=== PATIENT | female | born 1980 | race Caucasian/White ===

== ENCOUNTER 2017-07-11 13:27 | Emergency (ER) | payer SELFPAY ==
[~2017-07-11] VITALS: Ht 157.5 cm; Wt 72.6 kg
[2017-07-11 14:03] VITALS: BP 105/63
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
[2017-07-11 14:47] LABS: BILIRUBIN,URINE NEGATIVE (NEG); GLUCOSE,URINE NEGATIVE (NEG); NITRITE,URINE NEGATIVE (NEG); PH,URINE 5.5; PROTEIN,URINE NEGATIVE (NEG-TRACE); UROBILINOGEN,URINE 0.2 mg/dL (0.2 mg/dL)
--- NOTE | 2017-07-11 14:58 | RAD ---
CT head Indication: Headache for one week Technique: CT head without IV contrast. Comparison: None Findings: No pathologic extra-axial or intra-axial fluid collection. No acute intracranial bleed. The ventricles and basilar cisterns are within normal limits. The carrasco-white differentiation is preserved. Orbits within normal limits. Oval-shaped low attenuating focus seen within anterior right frontal lobe most likely prominent sulcus. No calvarial lesions. The paranasal sinuses and mastoid air cells are clear. Impression: No acute intracranial process on this noncontrast study. PQRS Compliance Statement: One or more of the following individualized dose reduction techniques were utilized for this examination: 1. Automated exposure control 2. Adjustment of the mA and/or kV according to patient size 3. Use of iterative reconstruction technique
[2017-07-11 14:59] LABS: BACTERIA,URINE MANY /HPF (0-FEW); RBC,URINE 0 /HPF (0-2); SQUAMOUS EPITHELIAL CELL,UR MANY /LPF
[2017-07-11] MEDS ORDERED: METOCLOPRAMIDE 10 MG TABLET. PO ONE (15:15)
[2017-07-11] MEDS ORDERED: diphenhydrAMINE HCL 25 MG CAPSULE PO ONE (15:15)
[2017-07-11] MEDS ORDERED: IBUPROFEN 800 MG TABLET. PO ONE (15:15)
[2017-07-11] MEDS ORDERED: NITR100C62 PO (15:17)
[2017-07-11 15:48] LABS: BARBITURATES NEG (NEG); BENZODIAZEPINES NEG (NEG); CANNABINOIDS POS (NEG); COCAINE NEG (NEG); METHADONE NEG (NEG); OPIATES NEG (NEG); PHENCYCLIDINE NEG (NEG)
== END 2017-07-11 15:30 | disposition home or self-care (01) ==
LOC: ER 13:27
DX: N39.0 Urinary tract infection, site not specified (principal); R51 Headache; F12.10 Cannabis abuse, uncomplicated; F15.10 Other stimulant abuse, uncomplicated; E03.9 Hypothyroidism, unspecified; F10.10 Alcohol abuse, uncomplicated
CPT/HCPCS: 70450; 80307; 81001; 81025; 87086; 99285; J8597; Q0163; G0479

== ENCOUNTER 2017-08-05 02:56 | Emergency (ER) | payer SELFPAY ==
[~2017-08-05] VITALS: Ht 154.9 cm; Wt 61.2 kg
[~2017-08-05 02:56] MED LIST: NITR100C62 PO
[2017-08-05 03:05] VITALS: BP 97/61
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
[2017-08-05 03:36] LABS: BACTERIA,URINE MODERATE /HPF (0-FEW); BILIRUBIN,URINE NEGATIVE (NEG); GLUCOSE,URINE NEGATIVE (NEG); NITRITE,URINE NEGATIVE (NEG); PH,URINE 5.5; PROTEIN,URINE NEGATIVE (NEG-TRACE); RBC,URINE OCC /HPF (0-2); SQUAMOUS EPITHELIAL CELL,UR MANY /LPF; UROBILINOGEN,URINE 0.2 mg/dL (0.2 mg/dL)
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
[2017-08-05] MEDS ORDERED: DIPHTH,PERTUSS(ACELL),TET TOX 0.5 ML DISP.SYRIN. VAX IM ONE ×2 (04:49→09:00)
[2017-08-05] MEDS ORDERED: LIDOCAINE 1% / SOD BICARB 8.4% 20 ML VIAL. IJ ONE (05:00)
[2017-08-05] MEDS ORDERED: NAPR500T PO (05:05)
[2017-08-05] MEDS ORDERED: KETOROLAC 60 MG/2 ML INJ. IM ONE (05:30)
[2017-08-05] MEDS ORDERED: IBUP-1060 PO (13:09)
== END 2017-08-05 05:14 | disposition home or self-care (01) ==
LOC: EEVIPCON 02:56 → ER 02:56
DX: S01.01XA Laceration without foreign body of scalp, initial encounter (principal); F41.9 Anxiety disorder, unspecified; F32.9 Major depressive disorder, single episode, unspecified; M79.7 Fibromyalgia; E03.9 Hypothyroidism, unspecified; G89.29 Other chronic pain; G47.00 Insomnia, unspecified; Q79.6 Ehlers-Danlos syndromes; F10.10 Alcohol abuse, uncomplicated; Z88.8 Allergy status to other drugs, medicaments and biological substances; X99.8XXA Assault by other sharp object, initial encounter; Y93.89 Activity, other specified; Y92.89 Other specified places as the place of occurrence of the external cause; Y99.8 Other external cause status
CPT/HCPCS: 12001; 70450; 72125; 81001; 81025; 87086; 90471; 90715; 96372; 99285; J1885

== ENCOUNTER 2017-08-05 11:38 | Emergency (ER) | payer MEDICARE ==
[~2017-08-05] VITALS: Ht 154.9 cm; Wt 61.2 kg
[~2017-08-05 11:38] MED LIST changes: +NAPR500T PO
[2017-08-05 11:45] VITALS: BP 129/76
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
[2017-08-05] MEDS ORDERED: HYDROcodone/APAP 5/325MG 1 TAB TABLET PO ONE (12:30)
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
[2017-08-05] MEDS ORDERED: IBUP-1060 PO (13:09)
== END 2017-08-05 13:44 | disposition home or self-care (01) ==
LOC: ER 11:38
DX: M54.5 Low back pain (principal); E03.9 Hypothyroidism, unspecified; Q79.6 Ehlers-Danlos syndromes; M79.7 Fibromyalgia; G89.29 Other chronic pain; F41.9 Anxiety disorder, unspecified; F32.9 Major depressive disorder, single episode, unspecified; Z88.8 Allergy status to other drugs, medicaments and biological substances
CPT/HCPCS: 72100; 99284

== ENCOUNTER 2017-11-17 04:36 | Emergency (ER) | payer SELFPAY, MEDICARE ==
[2017-11-17 05:06] LABS: URINE HCG POC HCG POSITIVE (Negative)
[2017-11-17 05:09] LABS: BILIRUBIN,URINE NEGATIVE (NEG); CLARITY,URINE CLEAR; COLOR,URINE YELLOW; GLUCOSE,URINE NEGATIVE (NEG); NITRITE,URINE POSITIVE (NEG); PH,URINE 6.5; PROTEIN,URINE NEGATIVE (NEG-TRACE); UROBILINOGEN,URINE 0.2 mg/dL (0.2 mg/dL)
[2017-11-17] MEDS: ZIPRASIDONE IM 20 MG VIAL. IM (05:17)
[2017-11-17 05:22] LABS: AMORPHOUS SEDIMENT,UR PRESENT /HPF; BACTERIA,URINE MODERATE /HPF (0-FEW); RBC,URINE OCC /HPF (0-2); SQUAMOUS EPITHELIAL CELL,UR FEW /LPF
[2017-11-17 05:23] LABS: BARBITURATES NEG (NEG); BENZODIAZEPINES NEG (NEG); CANNABINOIDS NEG (NEG); COCAINE NEG (NEG); METHADONE NEG (NEG); OPIATES NEG (NEG); PHENCYCLIDINE NEG (NEG)
[2017-11-17 05:25] LABS: AMPHETAMINE/METHAMPHETAMINE POS (NEG); ETHANOL, URINE POS (NEG)
[2017-11-17 05:53] LABS: ADD MAN DIFF? NO
[2017-11-17 05:56] LABS: BASO # 0.1 x10^3/uL (0.0-0.2); BASO % 1 % (0-3); EOS # 0.1 x10^3/uL (0.0-0.7); EOS % 1 % (0-3); HEMATOCRIT 46.2 % (36.0-47.0); HEMOGLOBIN 15.7 g/dL (12.0-15.5); LYMPH # 2.4 x10^3/uL (1.0-4.8); LYMPH % 28 % (24-48); MEAN CORPUSCULAR HEMOGLOBIN 32 pg (25-35); MEAN CORPUSCULAR HGB CONC 34 g/dL (31-37); MEAN CORPUSCULAR VOLUME 95 fL (79-100); MONO # 0.7 x10^3/uL (0.0-1.1); MONO % 8 % (0-9); NEUT # 5.5 x10^3uL (1.8-7.7); NEUT % 62 % (31-73); PLATELET COUNT 329 x10^3/uL (140-400); RED BLOOD COUNT 4.88 x10^6/uL (3.50-5.40); RED CELL DISTRIBUTION WIDTH 12.7 % (11.5-14.5); WHITE BLOOD COUNT 8.8 x10^3/uL (4.0-11.0)
[2017-11-17 06:08] LABS: ETHANOL 277 mg/dL (0-10)
[2017-11-17 06:24] LABS: ANION GAP 16 (6-14); BLOOD UREA NITROGEN 16 mg/dL (7-20); BUN/CREATININE RATIO 27 (6-20); CALCIUM 8.3 mg/dL (8.5-10.1); CARBON DIOXIDE 21 mmol/L (21-32); CHLORIDE 107 mmol/L (98-107); CREATININE 0.6 mg/dL (0.6-1.0); GFR 113.1; GLUCOSE 117 mg/dL (70-99); SODIUM 144 mmol/L (136-145)
[2017-11-17 06:30] LABS: ALBUMIN 3.7 g/dL (3.4-5.0); ALBUMIN/GLOBULIN RATIO 1.1 (1.0-1.7); ALK PHOS 50 U/L (46-116); ALT (SGPT) 14 U/L (14-59); AST (SGOT) 15 U/L (15-37); TOTAL BILIRUBIN 0.2 mg/dL (0.2-1.0)
[2017-11-17 06:39] LABS: POTASSIUM 3.5 mmol/L (3.5-5.1)
== END 2017-11-17 12:37 | disposition home or self-care (01) ==
LOC: ER 04:36
DX: F23 Brief psychotic disorder (principal); F10.10 Alcohol abuse, uncomplicated; F15.10 Other stimulant abuse, uncomplicated; F41.9 Anxiety disorder, unspecified; F32.9 Major depressive disorder, single episode, unspecified; M79.7 Fibromyalgia; E03.9 Hypothyroidism, unspecified; G89.29 Other chronic pain; G47.00 Insomnia, unspecified; Z88.8 Allergy status to other drugs, medicaments and biological substances; Z33.1 Pregnant state, incidental; Y90.8 Blood alcohol level of 240 mg/100 ml or more
CPT/HCPCS: 36415; 80053; 80307; 81001; 81025; 84702; 85025; 87086; 87186; 93005; 96365; 96372; 99285-25; G0480; J0690; J3486

== ENCOUNTER 2018-08-12 16:26 | Emergency (ER) | payer SELFPAY ==
[~2018-08-12] VITALS: Ht 162.6 cm; Wt 54.0 kg
[~2018-08-12 16:26] MED LIST changes: +IBUP-1060 PO; +NAPR-683 PO; -NAPR500T PO
[2018-08-12 16:35] VITALS: BP 94/57
[2018-08-12] MEDS: ONDANSETRON ODT 4 MG TAB.RAPDIS. PO ONE (17:09)
[2018-08-12] MEDS: IBUPROFEN 800 MG TABLET. PO ONE (17:09)
[2018-08-12] MEDS ORDERED: IBUP-1060 PO (17:27)
--- NOTE | 2018-08-12 17:27 | PHYS DOC ---
Past Medical History Past Medical History: Anxiety, Depression, Fibromyalgia, Hypothyroid, Other Additional Past Medical Histor: separation anxiety, joint disorder, insomnia, CHRONIC PAIN Past Surgical History: Other Additional Past Surgical Histo: wisdom teeth extracted Alcohol Use: Heavy Drug Use: Marijuana, Methamphetamine Adult General Chief Complaint Chief Complaint: BACK PAIN OR INJURY [facility] HPI Patient is a 38 year old female with a history of back pain presents to the ED complaining of lower back pain 2 days ago. Patient states that she was lifting a few objects and thinks she injured her left lower back. Describes the pain as sharp. Rates the pain as 7 out of 10. Patient able to ambulate without assistance. Denies fever, nausea/vomiting, abdominal pain, nausea/vomiting, chest pain, shortness of breath, or fever. Review of Systems Review of Systems Constitutional: Denies fever or chills [] Respiratory: Denies cough or shortness of breath [] Cardiovascular: No additional information not addressed in HPI [] GI: Denies abdominal pain, nausea, vomiting, bloody stools or diarrhea [] : Denies dysuria or hematuria [] Musculoskeletal: Complains of back pain. Denies joint pain [] Integument: Denies rash or skin lesions [] Neurologic: Denies headache, focal weakness or sensory changes [] All other systems were reviewed and found to be within normal limits, except as documented in this note. Current Medications Current Medications Current Medications Medications (Trade) Dose Ordered Sig/[facility] Start Time Stop Time Status Last Admin Dose Admin Ibuprofen (Motrin) 800 mg 1X ONCE 08/12/18 17:00 08/12/18 17:01 DC 08/12/18 17:09 800 MG Ondansetron HCl (Zofran Odt) 4 mg 1X ONCE 08/12/18 17:00 08/12/18 17:01 DC 08/12/18 17:09 4 MG Allergies Allergies Allergies Coded Allergies Type Severity Reaction Last Updated Verified pregabalin Allergy Intermediate 11/11/16 Yes Physical Exam Physical Exam Constitutional: Well developed, well nourished, no acute distress, non-toxic appearance. [] Cardiovascular:Heart rate regular rhythm, no murmur [] Lungs & Thorax: Bilateral breath sounds clear to auscultation [] Abdomen: Bowel sounds normal, soft, no tenderness, no masses, no pulsatile masses. [] Skin: Warm, dry, no erythema, no rash. [] Back: No tenderness, no CVA tenderness. [] Extremities: No bony tenderness, no cyanosis, no clubbing, ROM intact, no edema. [] Neurologic: Alert and oriented X 3, normal motor function, normal sensory function, no focal deficits noted. [] Psychologic: Affect normal, judgement normal, mood normal. [] Current Patient Data Vital Signs Vital Signs Date Time Temp Pulse Resp B/P (MAP) Pulse Ox O2 Delivery O2 Flow Rate FiO2 08/12/18 16:35 98.3 68 12 94/57 (69) 99 Room Air 98.3 EKG EKG [] Radiology/Procedures Radiology/Procedures [] Course & Med Decision Making Course & Med Decision Making Pertinent Labs and Imaging studies reviewed. (See chart for details) []No bony tenderness. No x-ray warranted. Patient's pain improved in the ED. States she is feeling much better. Patient able to ambulate without assistance. No focal neural deficits. Discussed follow-up with PCP outpatient this week. Provided contact information/education. Discussed reasons to return to the ED. Patient understands and agrees with plan. Community resource list provided. Dragon Disclaimer Dragon Disclaimer This electronic medical record was generated, in whole or in part, using a voice recognition dictation system. Departure Departure Impression: Primary Impression: Back pain Disposition: 01 HOME, SELF-CARE Condition: IMPROVED Referrals: NO PCP (PCP) HERSON RADER MD Patient Instructions: Back Pain, Adult Scripts Ibuprofen (IBUPROFEN) 800 Mg Tablet 800 MG PO PRN Q6HRS PRN for INFLAMMATION, #10 TAB Prov: ORTEGA MENDOZA 08/12/18 ORTEGA MENDOZA Aug 12, 2018 17:27
== END 2018-08-12 17:45 | disposition home or self-care (01) ==
LOC: ER 16:26
DX: M54.5 Low back pain (principal); F41.9 Anxiety disorder, unspecified; F32.9 Major depressive disorder, single episode, unspecified; M79.7 Fibromyalgia; E03.9 Hypothyroidism, unspecified; G89.29 Other chronic pain; F10.20 Alcohol dependence, uncomplicated; Z88.8 Allergy status to other drugs, medicaments and biological substances; Y90.9 Presence of alcohol in blood, level not specified
CPT/HCPCS: 99283; Q0162

== ENCOUNTER 2018-08-12 19:04 | Emergency (ER) | payer SELFPAY ==
[~2018-08-12] VITALS: Ht 152.4 cm; Wt 45.4 kg
--- NOTE | 2018-08-12 19:41 | PHYS DOC ---
Past Medical History Past Medical History: Anxiety, Depression, Fibromyalgia, Hypothyroid, Other Additional Past Medical Histor: separation anxiety, joint disorder, insomnia, CHRONIC PAIN Past Surgical History: Other Additional Past Surgical Histo: wisdom teeth extracted Alcohol Use: Heavy Drug Use: Marijuana, Methamphetamine Adult General Chief Complaint Chief Complaint: SUICDAL IDEATION [facility] HPI Patient is a 38 year old female with a history of depression who was seen previously today for back pain in the ED presents complaining of suicidal ideation 3 hours. Patient states that she is going through a divorce and might be losing her kid. Patient is uncooperative in the exam room. Having to redirect her multiple times as she talks about her other ailments including back pain and insect bites. Patient admits to having stayed in previous institutions for psych evaluations. States she has not been taking her medications; only one she remembers the name of is Seroqueeagle. Denies homicidal ideation, hallucinations, headache, vision changes, fever, dizziness, weakness, chest pain, abdominal pain, n/v, or injury. Patient is a poor historian and uncooperative. Review of Systems Review of Systems Constitutional: Denies fever or chills [] Eyes: Denies change in visual acuity, redness, or eye pain [] HENT: Denies nasal congestion or sore throat [] Respiratory: Denies cough or shortness of breath [] Cardiovascular: No additional information not addressed in HPI [] GI: Denies abdominal pain, nausea, vomiting, bloody stools or diarrhea [] : Denies dysuria or hematuria [] Musculoskeletal: Denies back pain or joint pain [] Integument: Denies rash or skin lesions [] Neurologic: Denies headache, focal weakness or sensory changes [] All other systems were reviewed and found to be within normal limits, except as documented in this note. Current Medications Current Medications Current Medications Medications (Trade) Dose Ordered Sig/[facility] Start Time Stop Time Status Last Admin Dose Admin Azithromycin (Zithromax) 1,000 mg 1X ONCE 08/12/18 20:30 08/12/18 20:31 DC 08/12/18 20:30 1,000 MG Ceftriaxone Sodium (Rocephin Im) 250 mg 1X ONCE 08/12/18 20:30 08/12/18 20:31 DC 08/12/18 20:30 250 MG Metronidazole (Flagyl) 2,000 mg 1X ONCE 08/12/18 21:15 08/12/18 21:16 DC 08/12/18 21:15 2,000 MG Sodium Chloride 1,000 ml @ 1,000 mls/hr 1X ONCE 08/12/18 20:30 08/12/18 21:29 DC Allergies Allergies Allergies Coded Allergies Type Severity Reaction Last Updated Verified pregabalin Allergy Intermediate 11/11/16 Yes Physical Exam Physical Exam Constitutional: no acute distress, non-toxic appearance. [] HENT: Normocephalic, atraumatic Eyes: PERRLA, EOMI, conjunctiva normal, no discharge. [] Neck: Normal range of motion, no tenderness, supple, no stridor. [] Cardiovascular:Heart rate regular rhythm, no murmur [] Lungs & Thorax: Bilateral breath sounds clear to auscultation [] Abdomen: Bowel sounds normal, soft, no tenderness, no masses, no pulsatile masses. [] Skin: Warm, dry, no erythema, no rash. [] Back: No tenderness, no CVA tenderness. [] Extremities: No tenderness, no cyanosis, no clubbing, ROM intact, no edema. [] Neurologic: Alert and oriented X 3, normal motor function, normal sensory function, no focal deficits noted. [] Psychologic: Complains of suicidal ideation without plan. Uncooperative. Current Patient Data Vital Signs Vital Signs Date Time Temp Pulse Resp B/P (MAP) Pulse Ox O2 Delivery O2 Flow Rate FiO2 08/12/18 22:54 65 18 77/53 (61) 99 Room Air 08/12/18 19:16 97.7 97.7 Lab Values Laboratory Tests Test 08/12/18 19:15 08/12/18 19:33 08/12/18 19:40 Urine Collection Type Unknown Urine Color [place] Urine Clarity Cloudy Urine pH 5.5 Urine Specific [place] >=1.030 Urine Protein Negative mg/dL (NEG-TRACE) Urine Glucose (UA) Negative mg/dL (NEG) Urine Ketones (Stick) 15 mg/dL (NEG) Urine Blood Negative (NEG) Urine Nitrite Negative (NEG) Urine Bilirubin Moderate (NEG) Urine Urobilinogen Dipstick 1.0 mg/dL (0.2 mg/dL) Urine Leukocyte Esterase Small (NEG) Urine RBC 0 /HPF (0-2) Urine WBC 11-20 /HPF (0-4) Urine Squamous Epithelial Cells Mod /LPF Urine Bacteria Mod /HPF (0-FEW) Urine Mucus Marked /LPF Urine Trichomonas Present Urine Opiates Screen Neg (NEG) Urine Methadone Screen Neg (NEG) Urine Barbiturates Neg (NEG) Urine Phencyclidine Screen Neg (NEG) Urine Amphetamine/Methamphetamine Pos (NEG) Urine Benzodiazepines Screen Neg (NEG) Urine Cocaine Screen Neg (NEG) Urine Cannabinoids Screen Neg (NEG) Urine Ethyl Alcohol Neg (NEG) POC Urine HCG, Qualitative Hcg positive (Negative) White Blood Count 8.5 x10^3/uL (4.0-11.0) Red Blood Count 4.16 x10^6/uL (3.50-5.40) Hemoglobin 13.6 g/dL (12.0-15.5) Hematocrit 38.6 % (36.0-47.0) Mean Corpuscular Volume 93 fL (79-100) Mean Corpuscular Hemoglobin 33 pg (25-35) Mean Corpuscular Hemoglobin Concent 35 g/dL (31-37) Red Cell Distribution Width 12.2 % (11.5-14.5) Platelet Count 331 x10^3/uL (140-400) Neutrophils (%) (Auto) 60 % (31-73) Lymphocytes (%) (Auto) 31 % (24-48) Monocytes (%) (Auto) 8 % (0-9) Eosinophils (%) (Auto) 1 % (0-3) Basophils (%) (Auto) 1 % (0-3) Neutrophils # (Auto) 5.1 x10^3uL (1.8-7.7) Lymphocytes # (Auto) 2.6 x10^3/uL (1.0-4.8) Monocytes # (Auto) 0.7 x10^3/uL (0.0-1.1) Eosinophils # (Auto) 0.1 x10^3/uL (0.0-0.7) Basophils # (Auto) 0.1 x10^3/uL (0.0-0.2) Maternal Serum HCG Beta Subunit 43 mIU/mL (0-5) H Sodium Level 135 mmol/L (136-145) L Potassium Level 3.3 mmol/L (3.5-5.1) L Chloride Level 99 mmol/L (98-107) Carbon Dioxide Level 29 mmol/L (21-32) Anion Gap 7 (6-14) Blood Urea Nitrogen 16 mg/dL (7-20) Creatinine 1.2 mg/dL (0.6-1.0) H Estimated GFR (Cockcroft-Gault) 50.6 BUN/Creatinine Ratio 13 (6-20) Glucose Level 103 mg/dL (70-99) H Calcium Level 9.2 mg/dL (8.5-10.1) Total Bilirubin 0.5 mg/dL (0.2-1.0) Aspartate Amino Transferase (AST) 13 U/L (15-37) L Alanine Aminotransferase (ALT) 12 U/L (14-59) L Alkaline Phosphatase 44 U/L (46-116) L Creatine Kinase 42 U/L (26-192) Total Protein 7.4 g/dL (6.4-8.2) Albumin 3.9 g/dL (3.4-5.0) Albumin/Globulin Ratio 1.1 (1.0-1.7) Salicylates Level 2.8 mg/dL (2.8-20.0) Salicylate Last Dose Date Unk Salicylate Last Dose Time Unk Acetaminophen Level < 2 mcg/ml (10-30) L Acetaminophen Last Dose Date Unk Acetaminophen Last Dose Time Unk Ethyl Alcohol Level < 10 mg/dL (0-10) Laboratory Tests 08/12/18 19:40 Laboratory Tests 08/12/18 19:40 EKG EKG [] Radiology/Procedures Radiology/Procedures PROCEDURE: PREG 1ST TRIMESTER Exam performed: Pelvic ultrasound. Indication: Positive test, spotting Date of Service: 08/12/2018. Comparison: None available Technique: Transabdominal, patient refused transvaginal scanning Findings: The uterus measures 7.0 x 4.9 x 4.0 cm. The endometrial stripe measures 11.1 mm. There is no intrauterine gestational sac. Bilateral ovaries are normal. The right ovary measures 2.4 x 1.5 x 1.4 cm.The left ovary measures 2.1 x 1.2 x 1.2 cm . Symmetric vascularity to both ovaries. There is no free fluid in the posterior cul-de-sac. Impression: 1. Essentially unremarkable pelvic sonogram. No evidence of intra or extra uterine seen. Findings may be related to very early intrauterine . Correlate with quantitative serial beta-hCG level and short-term interval follow-up OB ultrasound in approximately 2 weeks may be obtained.[] Course & Med Decision Making Course & Med Decision Making Pertinent Labs and Imaging studies reviewed. (See chart for details) []Patient found to be on workup. Will evaluate with US and HCG serum. Patient states she has had some vaginal spotting. Tested positive for trichomoniasis. Will treat with 2 grams of metronidazole per CDC guidelines ( and after discussing case with attending physician and pharmacy). Patient will also be covered with azithromycin and Rocephin for other possible treatable STDs. Patient refused pelvic exam and transvaginal US. No related findings visualized on US. HCG 43. Patient has mild spotting. Discussed follow-up with OB /DEPARTMENT STORE MANAGER for repeat US and beta HCG monitoring. Provided contact information/ education. Discussed reasons to return to the ED. Patient understands and agrees with plan. Case reviewed with PAT team ([facility]). Patient does not have a plan for suicide. Patient deemed by PAT team not a harm to herself or others. Calls placed to multiple family members but no calls returned to picking supervisor patient. Refused by [facility]. Patient will be transported by medical transport to [facility]. Patient states she has been there before and is in agreeable to going. Patient states she is feeling much better and is denying homicidal/suicidal symptoms at discharge. Dragon Disclaimer Dragon Disclaimer This electronic medical record was generated, in whole or in part, using a voice recognition dictation system. Departure Departure Impression: Primary Impression: Threatened miscarriage in early Additional Impressions: Depression Trichimoniasis Disposition: 05 TRANSFER OTHER ([facility]) Condition: STABLE Referrals: NO PCP (PCP) SORAYA PHAM MD, MICHAEL M MD Patient Instructions: Depression, Adult, Threatened Miscarriage, Trichomoniasis Attending Co-Sign Attending Co-Sign The patient was not seen by me. The [facility] chart was reviewed. Case discussed with MLP. I agreed with the plan of care. Problem Qualifiers ORTEGA MENDOZA Aug 12, 2018 19:41 LARRY WILCOX MD Aug 16, 2018 00:36
[2018-08-12 19:46] LABS: BILIRUBIN,URINE MODERATE (NEG); CLARITY,URINE CLOUDY; COLOR,URINE AMBER; NITRITE,URINE NEGATIVE (NEG); PH,URINE 5.5; PROTEIN,URINE NEGATIVE (NEG-TRACE)
[2018-08-12 19:53] LABS: BARBITURATES NEG (NEG); BENZODIAZEPINES NEG (NEG); CANNABINOIDS NEG (NEG); COCAINE NEG (NEG); METHADONE NEG (NEG); OPIATES NEG (NEG); PHENCYCLIDINE NEG (NEG)
[2018-08-12 19:54] LABS: AMPHETAMINE/METHAMPHETAMINE POS (NEG)
[2018-08-12 19:55] LABS: BACTERIA,URINE MOD /HPF (0-FEW); RBC,URINE 0 /HPF (0-2); SQUAMOUS EPITHELIAL CELL,UR MOD /LPF; TRICHOMONAS,URINE PRESENT
[2018-08-12 19:55] LABS: BASO # 0.1 x10^3/uL (0.0-0.2); BASO % 1 % (0-3); EOS # 0.1 x10^3/uL (0.0-0.7); EOS % 1 % (0-3); HEMATOCRIT 38.6 % (36.0-47.0); HEMOGLOBIN 13.6 g/dL (12.0-15.5); LYMPH # 2.6 x10^3/uL (1.0-4.8); LYMPH % 31 % (24-48); MEAN CORPUSCULAR HEMOGLOBIN 33 pg (25-35); MEAN CORPUSCULAR HGB CONC 35 g/dL (31-37); MEAN CORPUSCULAR VOLUME 93 fL (79-100); MONO # 0.7 x10^3/uL (0.0-1.1); MONO % 8 % (0-9); NEUT # 5.1 x10^3uL (1.8-7.7); NEUT % 60 % (31-73); PLATELET COUNT 331 x10^3/uL (140-400); RED BLOOD COUNT 4.16 x10^6/uL (3.50-5.40); RED CELL DISTRIBUTION WIDTH 12.2 % (11.5-14.5); WHITE BLOOD COUNT 8.5 x10^3/uL (4.0-11.0)
[2018-08-12 20:06] LABS: CALCIUM 9.2 mg/dL (8.5-10.1); CREATININE 1.2 mg/dL (0.6-1.0); GFR 50.6; POTASSIUM 3.3 mmol/L (3.5-5.1)
[2018-08-12 20:12] LABS: ACETAMIN < 2 mcg/ml (10-30); ALBUMIN 3.9 g/dL (3.4-5.0); ALBUMIN/GLOBULIN RATIO 1.1 (1.0-1.7); ETHANOL < 10 mg/dL (0-10); SALIC 2.8 mg/dL (2.8-20.0); TOTAL BILIRUBIN 0.5 mg/dL (0.2-1.0); TOTAL PROTEIN 7.4 g/dL (6.4-8.2)
--- NOTE | 2018-08-12 20:22 | EKG ---
[facility] [address] [place] [address] Test Date: 2018-08-12 Test Time: 20:12:49 Pat Name: PATEL FINN Department: Room: Gender: F Baggage Security Checker: : 1980 Requested By: ORTEGA MENDOZA Order Number: [id number] Reading MD: Darrell Chavez Measurements Intervals Cisco Rate: 67 P: 41 TN: 158 QRS: 49 QRSD: 76 T: 54 QT: 386 QTc: 410 Interpretive Statements SINUS RHYTHM NON SPECIFIC ST-T ABNORMALITY (ELEVATION) OTHERWISE NORMAL ECG Electronically Signed On 08-13-2018 15:27:14 CDT by Darrell Chavez
[2018-08-12] MEDS: AZITHROMYCIN 250 MG TABLET. PO ONE (20:30)
[2018-08-12] MEDS: cefTRIAXone IM 250 MG VIAL IM ONE (20:30)
[2018-08-12] MEDS: IV NORMAL SALINE 1000ML BAG 1,000 ML IV ONE (20:30)
[2018-08-12] MEDS: metroNIDAZOLE 500 MG TABLET PO ONE (21:15)
--- NOTE | 2018-08-12 22:24 | RAD ---
Exam performed: Pelvic ultrasound. Indication: Positive test, spotting Date of Service: 08/12/2018. Comparison: None available Technique: Transabdominal, patient refused transvaginal scanning Findings: The uterus measures 7.0 x 4.9 x 4.0 cm. The endometrial stripe measures 11.1 mm. There is no intrauterine gestational sac. Bilateral ovaries are normal. The right ovary measures 2.4 x 1.5 x 1.4 cm.The left ovary measures 2.1 x 1.2 x 1.2 cm . Symmetric vascularity to both ovaries. There is no free fluid in the posterior cul-de-sac. Impression: 1. Essentially unremarkable pelvic sonogram. No evidence of intra or extra uterine seen. Findings may be related to very early intrauterine . Correlate with quantitative serial beta-hCG level and short-term interval follow-up OB ultrasound in approximately 2 weeks may be obtained. Electronically signed by: Cici Waite MD (08/12/2018 10:20 PM) [facility]
[2018-08-12 22:54] VITALS: BP 77/53
== END 2018-08-12 23:15 | disposition short-term general hospital (02) ==
LOC: ER 19:04
DX: O20.0 Threatened abortion (principal); O99.341 Other mental disorders complicating pregnancy, first trimester; O99.281 Endocrine, nutritional and metabolic diseases complicating pregnancy, first trimester; O99.311 Alcohol use complicating pregnancy, first trimester; F32.9 Major depressive disorder, single episode, unspecified; A59.9 Trichomoniasis, unspecified; F41.9 Anxiety disorder, unspecified; M79.7 Fibromyalgia; E03.9 Hypothyroidism, unspecified; G89.29 Other chronic pain; F10.20 Alcohol dependence, uncomplicated; Z3A.00 Weeks of gestation of pregnancy not specified; Y90.0 Blood alcohol level of less than 20 mg/100 ml
CPT/HCPCS: 36415; 76801; 80053; 80307; 80329; 81001; 81025; 82550; 84702; 85025; 86900; 86901; 93005; 96372; 99285; G0480; G6039; J0696; Q0144; G0479